=== PATIENT | male | born 1995 | race Caucasian/White ===

== ENCOUNTER → 2018-11-03 | Day surgery (SDC) | payer OTHER ==
[~2018-11-03] MED LIST: BUPIVACAINE HCL 0.5% INJ 30 ML VIAL INJ ONE; CEFAZOLIN SOD 1 GM/NS 50ML 50 ML IV ONE; DEXAMETHASONE SOD PHOS INJ 4 MG/ML VIAL ONE; FENTANYL CITRATE/PF 100MCG/2 ML INJ ONE; KETOROLAC TROMETHAMINE 30 MG/ML VIAL ONE; LIDOCAINE HCL 2% LOCAL INJ 5 ML SDV VIAL INJ ONE; MIDAZOLAM HCL 2 MG/2 ML VIAL ONE; MUPIROCIN 2% OINT 22 GM TUBE ONE; ONDANSETRON HCL INJ 2MG/ML 2ML 2 MG/ML VIAL ONE; PROPOFOL IV EMULSION 10 MG/ML 20 ML VIAL ONE; SEVOFLURANE INHAL SOLN 250 ML PEN BTL ONE
--- OUTSIDE RECORDS SUMMARY | 2018-11-03 05:28 | XMS REPORT | Continuity of Care Document ---
Author Author [facility] Interface Address Unknown Phone Unavailable Problems Problem Status Onset Date Classification Date Reported Comments Source Allergic bronchitis 08/03/2018 Diagnosis 08/03/2018 [facility] Pain in throat 08/03/2018 Diagnosis 08/03/2018 [facility] Body mass index 30+ - obesity 08/03/2018 Diagnosis 08/03/2018 [facility] Body Mass Index 30+ - Obesity 08/03/2018 Problem 08/03/2018 [facility] Pain in Throat 08/03/2018 Problem 08/03/2018 [facility] Allergic Bronchitis 08/03/2018 Problem 08/03/2018 [facility] Immunization 08/03/2018 Problem 08/03/2018 [facility] Counseling 08/03/2018 Problem 08/03/2018 [facility] Seasonal allergic rhinitis 12/24/2016 Diagnosis 12/24/2016 [facility] Contact dermatitis due to poison eulalia 02/02/2016 Diagnosis 02/02/2016 [facility] Acute Pharyngitis Problem 12/24/2016 [facility] Upper Respiratory Infection Problem 12/24/2016 [facility] Contact Dermatitis Due to Poison E[place] Problem 12/24/2016 [facility] Medications Medication Details Route Status Patient Instructions Ordering Provider Order Date Source Fluticasone propionate 0.05 MG/ACTUAT Metered Dose Nasal [place] fluticasone 50 mcg/actuation nasal spray,suspension [place] 2 sprays every day by intranasal route as directed for 10 days. Active [facility] Medrol (Ady) 4 mg tablets in a dose pack Medrol (Ady) 4 mg tablets in a dose pack Take as directed Active [facility] Brompheniramine Maleate 0.4 MG/ML / Dextromethorphan Hydrobromide 2 MG/ML / Pseudoephedrine Hydrochloride 6 MG/ML Oral Solution [Bromfed DM] Bromfed DM 2 mg-30 mg-10 mg/5 mL syrup Take 10 mL every 6-8 hours by oral route as needed for 5 days. Active [facility] Dexamethasone phosphate 4 MG/ML Injectable Solution dexamethasone 4 mg/mL injection solution Active [facility] Prednisone 20 MG Oral Tablet prednisone 20 mg tablet Take 1 tablet TID x 5 days, then 1 tablet BID x 5 days, then 1 tablet daily x 5 days Active [facility] Allergies, Adverse Reactions, Alerts Substance Category Reaction Severity Reaction type Status Date Reported Comments Source Immunizations Immunization Date Given Site Status Last Updated Comments Source Tdap 08/03/2018 completed [facility] influenza, unspecified formulation 05/12/2016 completed [facility] Tdap 08/12/2007 completed [facility] Results Order Name Results Value Reference Range Date Interpretation Comments Source PEF 610 08/03/2018 [facility] Percent Predicted Value 97.9% 08/03/2018 [facility] RESULT negative 08/03/2018 [facility] SWAB LOCATION Left and Right tonsillar pillars 08/03/2018 [facility] Vital Signs Vital Sign Value Date Comments Source Diastolic (mm Hg) 70 08/03/2018 [facility] Height 74 08/03/2018 [facility] Systolic (mm Hg) 112 08/03/2018 [facility] Weight 262 08/03/2018 [facility] Diastolic (mm Hg) 80 12/24/2016 [facility] Height 74 12/24/2016 [facility] Systolic (mm Hg) 120 12/24/2016 [facility] Weight 225 12/24/2016 [facility] Diastolic (mm Hg) 68 02/02/2016 [facility] Height 74 02/02/2016 [facility] Systolic (mm Hg) 104 02/02/2016 [facility] Weight 220 02/02/2016 [facility] Encounters Location Location Details Encounter Type Encounter Number Reason For Visit Attending Provider ADM Date DC Date Status Source [place] - [facility] - [id number] Sharma: [address] [place] [address], Ph. [id number] Marbella Hunter 02/02/2016 [facility] [place] [facility] - [id number] Pablo-C: [address] [place] [address], Ph. [id number] Keysha Jones 12/24/2016 [facility] [place] - [facility] - [id number] Jones, [facility]: [address], [place] [address], Ph. [id number] Keysha Jones 08/03/2018 [facility] Procedures Procedure Code Date Perfomer Comments Source
--- OUTSIDE RECORDS SUMMARY | 2018-11-03 05:28 | XMS REPORT | Encounter Summary ---
Author Organization Unknown Address [address] [place] [address] Phone [phone] Reason for Visit Medical Complaint; poson eulalia x 4 days Instructions 1. Contact dermatitis due to poison eulalia prednisone 20 mg tablet dexamethasone 4 mg/mL injection solution Discussion Note: None recorded. Patient educational handouts: No information available. Plan of Care Patient Instructions Wash all belongs that pt has been wearing since exposure. Avoid wearing the same jewelry that had been worn since exposure. Avoid scratching, if symptoms not better in 3 days, see guard sergeant or see clinic. Reminders Provider Appointments None recorded. Lab None recorded. Referral None recorded. Procedures None recorded. Surgeries None recorded. Imaging None recorded. Medications Name Start Date dexamethasone 4 mg/mL injection solution prednisone 20 mg tablet Take 1 tablet TID x 5 days, then 1 tablet BID x 5 days, then 1 tablet daily x 5 days Medications Administered Name Date dexamethasone 4 mg/mL injection solution Take by injection route. [id number] Vitals Height Weight BMI Blood Pressure 6 ft 2 in 220 lbs 28.2 104/68 Lab Results None recorded. Allergies Name Reaction Severity Onset NKDA Problems Name Status Onset Date Source Acute Pharyngitis Active Encounter Upper Respiratory Infection Active Encounter Contact Dermatitis Due to Poison [place] Active Encounter Procedures None recorded. Vaccine List Vaccine Type Tdap 08/11/2007 Social History Smoking Status Never Smoker Past Encounters 02/02/2016 Contact Dermatitis Due to Poison [place] Marbella Hunter, [employer]: [address] [place] [address], Ph. History of Present Illness Jbif-Qlqeytv-Nnfzr-Skin Lesion-Bite 1 Reported By: Patient HPI: Location: abdomen, arms. Quality: itchy. Severity: worsening. Duration: has noted for <1 week. Onset/Timing: abrupt onset. Context: no new detergents or skin products, no one else with similar rash, no sting or bite; poison eulalia. Aggravating factors: nothing makes it worse. Alleviating factors: nothing gives relief. Associated Symptoms: no fever, no cold symptoms, no nausea, no vomiting, no diarrhea, no urinary symptoms Review of Systems Basic Reported By: Patient Constitutional: Constitutional: no fever Eyes: Eyes: no eye complaints Ozyg-Btgj-Lsshu-Throat: Ears: no ear complaints. Nose: no nose/sinus problems. Mouth/Throat: no sore throat, no bleeding gums, no mouth complaints, no teeth problems Cardiovascular: Cardiovascular: no chest pain, no shortness of breath, no known heart murmur Respiratory: Respiratory: no cough, no wheezing, no shortness of breath Gastrointestinal: Gastrointestinal: no abdominal pain, no vomiting / diarrhea Genitourinary: Genitourinary: no urinary complaints, no discharge Musculoskeletal: Musculoskeletal: no muscle aches, no muscle weakness, no arthralgias/joint pain, no back pain Skin: Skin: no abnormal / changing mole, no jaundice, rash, itching Neurologic: Neurologic: no loss of consciousness, no weakness, no numbness, no seizures, no dizziness, no headaches Physical Exam Adult Basic, 14-21 Yr Male, Adult Male Complete Constitutional: General Appearance: healthy-appearing, well-nourished, well-developed. Level of Distress: NAD. Ambulation: ambulating normally Psychiatric: Mental Status: active and alert, normal affect, normal mood. Orientation: to time, to place, to person Eyes: Lids and Conjunctivae: non-injected, no discharge, no pallor. Pupils: PERRLA, equal size, round, reactive to light. Corneas: grossly intact. EOM: EOMI, normal cover/uncover test. Lens: clear. Sclerae: non-icteric. Vision: acuity grossly intact, peripheral vision grossly intact Kig-Zrid-Tyuve-Throat: Ears: no lesions on external ear, no outer ear tenderness, EACs clear, TMs clear. Hearing: no hearing loss. Nose: no lesions on external nose, nares patent, no septal deviation, nasal passages clear, no sinus tenderness, no nasal discharge. Lips, Teeth, and Gums: no mouth or lip ulcers, no bleeding gums, normal dentition. Oropharynx: moist mucous membranes, no erythema, no exudates, tonsils not enlarged Neck: Neck: supple, trachea midline, no masses, FROM. Lymph Nodes: no cervical LAD, no supraclavicular LAD. Thyroid: no enlargement, non-tender, no nodules, no asymmetry Lungs: Respiratory effort: no dyspnea, no tachypnea, no use of accessory muscles, no intercostal retractions. Auscultation: breath sounds normal, clear to auscultation, no wheezing, no rales/crackles, no rhonchi, no retractions, good air movement Cardiovascular: Heart Auscultation: RRR, no murmurs, no gallops, no rub. Apical impulse: not displaced. Rate and rhythm: regular Skin: Inspection and palpation: rash
--- OUTSIDE RECORDS SUMMARY | 2018-11-03 05:28 | XMS REPORT | Encounter Summary ---
Author Organization Unknown Address [address] [place] [address] Phone [phone] Care Team Providers [employer] Name Role Phone Sesar Veras MD 3 [phone] Reason for Visit Medical Complaint; Immunization Instructions 1. Allergic bronchitis peak flow Bromfed DM 2 mg-30 mg-10 mg/5 mL syrup 2. Pain in throat rapid strep group A, throat sore throat: care instructions 3. Immunization Boostrix Tdap 2.5 Lf unit-8 mcg-5 Lf/0.5 mL intramuscular syringe 4. Body mass index 30+ - obesity body mass index: care instructions 5. Counseling Discussion Note Pt is in NAD; Verbalizes understanding of all instructions with no questions at this time. Plan of Care Patient Instructions Take flonase over the counter as per package insert for allergy symptoms. [place] one spray in each nostril twice a day. Take a warm, steamy shower, blow your nose thereafter, and spray in each nostril. Tilt your head up for about 10 seconds and breath through your mouth. Do not sniff or snort the medication in or else the medication will go to your throat and not be absorbed appropriately. Take Bromfed DM for cough as directed. Proper hydration and rest. Take medications as prescribed. Follow up with your PCP within 2-3 days if symptoms worsen as discussed. Recommend follow a low sodium/fat/carb diet and exercise 30-45 mins/d 3-4 days a week once symptoms resolve. Td Booster every 10 years after first Tdap vaccine. Refer to your VIS handout as discussed in clinic today regarding your care after administration. Follow up with your PCP as needed. In case of emergecy call 911 or go to nearest ER. Reminders Provider Appointments None recorded. Lab Rapid Strep Group a, Throat 08/03/2018 [facility] Referral None recorded. Procedures None recorded. Surgeries None recorded. Imaging None recorded. Medications Name Start Date Bromfed DM 2 mg-30 mg-10 mg/5 mL syrup Take 10 mL every 6-8 hours by oral route as needed for 5 days. Medications Administered None recorded. Vitals Height Weight BMI Blood Pressure 6 ft 2 in 262 lbs 33.6 kg/m2 112/70 mm[Hg] Lab Results Date Name Specimen Result Interpretation Description Value Range Status Address Peak Flow Pef 610 [facility]: [facility] Percent Predicted Value 97.9% [facility]: [address] [place] [address] Rapid Strep Group a, Throat Result negative [facility]: [address] [place] [address] Swab Location Left and Right tonsillar pillars [facility]: [address] [place] [address] Allergies Code Code System Name Reaction Severity Status Onset NKDA Problems Name Status Onset Date Source Body Mass Index 30+ - Obesity Active 08/03/2018 Pain in Throat Active 08/03/2018 Allergic Bronchitis Active 08/03/2018 Immunization Active 08/03/2018 Counseling Active 08/03/2018 Procedures None recorded. Vaccine List Vaccine Type influenza, unspecified formulation 05/12/2016 Tdap 08/12/2007 08/03/20180.5 mL Social History Smoking Status Never Smoker Past Encounters 08/03/2018 Allergic Bronchitis; Pain in Throat; Immunization; Body Mass Index 30+ - Obesity; Counseling Keysha Jones, [employer]: [address] [place] [address], Ph. History of Present Illness Cough Reported By: Patient HPI: Location: chest. Quality: sore throat, dry cough. Duration: ; x 2 weeks. Severity: mild. Onset/Timing: gradual. Context: no sick contacts, no foreign travel, non- smoker. Modifying factors: ; Has not taken anything. Associated Symptoms: no sputum production, no shortness of breath, no wheezing, no sweats, no significant weight gain, no significant weight loss, no morning cough, no vomiting, no diarrhea, no rash, no nausea, no fever/chills, no muscle aches, no headache, sore throat; mild productive cough Immunization Reported By: Patient HPI: Immunization Request ; sore throat and mild productive cough x 2 weeks. Immunization eligibility questions No vaccines in last month, No reaction to previous vaccines:, No Known Allergies Review of Systems Basic Reported By: Patient Constitutional: Constitutional: no fever Eyes: Eyes: no eye complaints Qzii-Digq-Qlhdn-Throat: Ears: no ear complaints. Nose: no nose/sinus problems. Mouth/Throat: no bleeding gums, no mouth complaints, no teeth problems, sore throat Cardiovascular: Cardiovascular: no chest pain, no shortness of breath, no known heart murmur Respiratory: Respiratory: no wheezing, no shortness of breath, cough Gastrointestinal: Gastrointestinal: no abdominal pain, no vomiting / diarrhea Genitourinary: Genitourinary: no urinary complaints, no discharge Musculoskeletal: Musculoskeletal: no muscle aches, no muscle weakness, no arthralgias/joint pain, no back pain Skin: Skin: no abnormal / changing mole, no jaundice, no rashes Neurologic: Neurologic: no loss of consciousness, no weakness, no numbness, no seizures, no dizziness, no headaches Physical Exam Adult Basic, Adult Male Complete, Immunization Reported By: Patient Constitutional: General Appearance: overweight, obese. Level of Distress: NAD. Ambulation: ambulating normally Psychiatric: Mental Status: active and alert. Orientation: to time, to place, to person Eyes: Lids and Conjunctivae: non-injected, no discharge, no pallor. Corneas: grossly intact. Lens: clear Hni-Gmve-Gdxay-Throat: Ears: no lesions on external ear, no outer ear tenderness, EACs clear, TMs clear. Hearing: no hearing loss. Nose: no lesions on external nose, nares patent, no septal deviation, nasal passages clear, no sinus tenderness, post nasal drip. Lips, Teeth, and Gums: no mouth or lip ulcers, no bleeding gums, normal dentition. Oropharynx: moist mucous membranes, no erythema, no exudates, tonsils not enlarged Neck: Neck: supple. Lymph Nodes: no cervical LAD Lungs: Respiratory effort: no dyspnea, no tachypnea, no use of accessory muscles, no intercostal retractions. Auscultation: breath sounds normal, good air movement Cardiovascular: Heart Auscultation: RRR, no murmurs Neurologic: Gait and Station: normal gait, normal station. Cranial Nerves: grossly intact Notes:
--- OUTSIDE RECORDS SUMMARY | 2018-11-03 05:28 | XMS REPORT | Encounter Summary ---
Author Organization Unknown Address [address] [place] [address] Phone [phone] Reason for Visit Medical Complaint Instructions 1. Seasonal allergic rhinitis seasonal allergies: care instructions fluticasone 50 mcg/actuation nasal spray,suspension Medrol (Ady) 4 mg tablets in a dose pack Discussion Note Pt is in NAD; Verbalizes understanding of all instructions with no questions at this time. Plan of Care Patient Instructions Take fluticasone as needed for congestion. [place] one spray in each nostril twice a day. Take a warm, steamy shower, blow your nose thereafter, and spray in each nostril. Tilt your head up for about 10 seconds and breath through your mouth. Do not sniff or snort the medication in or else the medication will go to your throat and not be absorbed appropriately. Take over the counter antihistamines like sonny or Claritin Start steroid taper and take as directed. Take over the counter chloraseptic spray as per package insert for sore throat if needed. Take medications as prescribed and follow up with a PCP within 2-3 if symptoms worsen as discussed. In case of an emergency call 911 or go to nearest ER. Reminders Provider Appointments None recorded. Lab None recorded. Referral None recorded. Procedures None recorded. Surgeries None recorded. Imaging None recorded. Medications Name Start Date fluticasone 50 mcg/actuation nasal spray,suspension [place] 2 sprays every day by intranasal route as directed for 10 days. Medrol (Ady) 4 mg tablets in a dose pack Take as directed Medications Administered None recorded. Vitals Height Weight BMI Blood Pressure 6 ft 2 in 225 lbs 28.9 120/80 Lab Results None recorded. Allergies Code Code System Name Reaction Severity Onset NKDA Problems Name Status Onset Date Source Acute Pharyngitis Active Encounter Upper Respiratory Infection Active Encounter Contact Dermatitis Due to Poison [place] Active Encounter Procedures None recorded. Vaccine List Vaccine Type influenza, unspecified formulation 05/11/2016 Tdap 08/11/2007 Social History Smoking Status Never Smoker Past Encounters 12/24/2016 Seasonal Allergic Rhinitis [facility] [employer]: [address] [facility], [place] [address], Ph. History of Present Illness Skwxi-Jlyazmcfpx-Xpcsnjd Reported By: Patient HPI: Location: head/sinuses. Quality: nasal/sinus congestion, dry cough. Duration: 3days. Severity: mild. Onset/Timing: gradual. Context: no sick contacts, no foreign travel, non-smoker, allergies. Modifying factors: ; none. Associated Symptoms: no sputum production, no shortness of breath, no wheezing, no change in number of pillows needed to sleep at night, no sweats, no significant weight gain, no significant weight loss, no morning cough, no vomiting, no diarrhea, no rash, no nausea, no fever, no muscle aches, no headache, sore throat; sinus congestion, nasal pressure, rhinorrhea, cough Review of Systems:ROS as noted in the HPI Review of Systems Basic Reported By: Patient Physical Exam Adult Basic, 14-21 Yr Male, Adult Male Complete Reported By: Patient Constitutional: General Appearance: healthy-appearing, well-nourished, well-developed. Level of Distress: NAD. Ambulation: ambulating normally Psychiatric: Mental Status: active and alert. Orientation: to time, to place, to person Ycj-Vpmx-Svldb-Throat: Ears: no lesions on external ear, no outer ear tenderness, EACs clear, TMs clear. Hearing: no hearing loss. Nose: no lesions on external nose, nares patent, no septal deviation, nasal passages clear, no sinus tenderness, nasal discharge--rhinorrhea, post nasal drip; pale and edematous nasal turbinates bilaterally. Lips, Teeth, and Gums: no mouth or lip ulcers, no bleeding gums, normal dentition. Oropharynx: moist mucous membranes, no erythema, no exudates, tonsils not enlarged Neck: Lymph Nodes: no cervical LAD Lungs: Respiratory effort: no dyspnea, no tachypnea, no use of accessory muscles, no intercostal retractions. Auscultation: breath sounds normal Cardiovascular: Heart Auscultation: RRR, no murmurs Neurologic: Gait and Station: normal gait, normal station
[2018-11-03 08:04] VITALS: BP 141/93
--- NOTE | 2018-11-03 15:03 | Operative Report ---
DATE OF PROCEDURE: 11/03/2018 SURGEON: Stuart Garcia MD FUR BLOWER: Anastacio Olivia, certified PA. PREOPERATIVE DIAGNOSIS: Syndesmosis disruption, right ankle. POSTOPERATIVE DIAGNOSIS: Syndesmosis disruption, right ankle. PROCEDURE: Closed reduction and tightrope fixation, right ankle syndesmosis. INDICATIONS: The patient is a 23-year-old gentleman who injured his right ankle. He has x-rays that show widening of the ankle mortise and disruption of the syndesmosis. The findings and options have been discussed. We plan on closed reduction and tightrope fixation of the right ankle syndesmosis disruption. The risks and benefits were explained. He states he understands and wishes to proceed. PROCEDURE IN DETAIL: The patient was brought to the operating room and placed under general anesthetic. His right lower extremity was prepped and draped in a sterile manner. A preoperative time-out was performed. A tourniquet had been placed on the upper thigh, but was never inflated. A small incision was made over the distal fibula. A C-arm image intensifier was used to assist in placing a drill hole from lateral to medial. A tight rope construct was then passed. The button was deployed over the far cortex. The ankle was put through flexion and extension with varus and valgus stressing. The syndesmosis was tightened down several times. Nice reduction of the medial clear space was accomplished. The FiberWire stitches were cut short. Final x-rays confirmed satisfactory reduction of the ankle mortise. A single nylon stitch was used to close the lateral incision. A sterile bandage and a splint was applied. There was no blood loss and all needle and sponge counts were correct. Stuart Garcia MD DR/ENZO /[id number]
== END | disposition home or self-care (01) ==
LOC: OR 05:25
PROVIDERS: ATTEND Specialist
DX: M25.371 Other instability, right ankle (principal); S82.891A Other fracture of right lower leg, initial encounter for closed fracture; W18.39XA Other fall on same level, initial encounter; Y93.64 Activity, baseball; Z68.32 Body mass index [BMI] 32.0-32.9, adult
CPT/HCPCS: 27899; 76000; J0690; J1100; J1885; J2001; J2250; J2405; J2704